=== PATIENT | female | born 1985 | race Caucasian/White ===

== ENCOUNTER 2020-10-13 03:20 | Inpatient (IN) ==
[2020-10-13] MEDS ORDERED: Buffered Lidocaine 1% SYRIN 1 ml INTRADERM ONE (04:01)
[2020-10-13] MEDS ORDERED: Lactated Ringers 1000 ml BAG 1,000 ML IV ONE ×2 (04:01→04:47)
[2020-10-13 04:07] LABS: ABS Basophils 0.1 10^3/ul (0-0.2); ABS Eosinophils 0.1 10^3/ul (0-0.6); ABS Lymphocytes 2.7 10^3/ul (1.0-4.8); ABS Monocytes 1.2 10^3/ul (0-0.8); ABS Neutrophils 14.1 10^3/ul (1.5-7.7); Eosinophil % 0.7 %; Hematocrit 43 % (35-47); Hemoglobin 14.6 g/dL (12.0-16.0); Mean Corpuscular HGB Conc 34 g/dL (31-36); Mean Corpuscular Hemoglobin 30 pg (27-31); Mean Corpuscular Volume 88 fL (80-97); Mean Platelet Volume 8.1 fL (7.4-10.4); Platelet Count 286 10^3/uL (150-450); Red Blood Count 4.85 10^6 /uL (3.70-4.87); Red Cell Distribution Width 14 % (10-15); White Blood Count 18.2 10^3/uL (3.5-10.8)
[2020-10-13] MEDS ORDERED: OBEPIDURAL 250 ML EPIDURAL ONE (04:09)
[2020-10-13] MEDS ORDERED: Bupivacaine 0.5% SDV PF 30ML VIAL ONE (04:26)
[2020-10-13] MEDS ORDERED: fentaNYL 100 mcg/2 ml 50 MCG/ML VIAL ONE (04:29)
[2020-10-13] MEDS: Lactated Ringers 1000 ml BAG 1,000 ML IV SCH ×2 (04:42→05:30)
[2020-10-13] MEDS ORDERED: Sodium Citrate/Citric Acid LIQ 15 ML UDC PO PRN (04:47)
[2020-10-13] MEDS ORDERED: Phenylephrine 40 mcg/mL 10mL (400mcg) SYRINGE IV PUSH PRN ×2 (04:47)
[2020-10-13] MEDS ORDERED: Lactated Ringers 1000 ml BAG 1,000 ML IV SCH ×2 (05:00→11:00)
[2020-10-13] MEDS ORDERED: OBEPIDURAL 250 ML EPIDURAL SCH (05:00)
[2020-10-13 06:30] LABS: Urine Appearance Cloudy; Urine Bilirubin Negative (Negative); Urine Blood 3+ (Negative); Urine Color Yellow; Urine Glucose Negative (Negative); Urine Ketones Negative (Negative); Urine Nitrite Negative (Negative); Urine Protein 1+(30 mg/dL) (Negative); Urine Specific Gravity 1.012 (1.002-1.030); Urine Urobilinogen Negative (Negative)
[2020-10-13 06:32] LABS: Urine Bacteria Absent (Absent); Urine Red Blood Cell 3+(>10/hpf) (Absent); Urine Squamous Epithelial Cell Present (Absent); Urine Transitional Epithelial Present (Absent); Urine White Blood Cell Trace(0-5/hpf) (Absent)
[2020-10-13 06:45] LABS: Urine Benzodiazepine Screen None Detected (None Detect); Urine Cannabinoids Screen Presumptive Positive (None Detect); Urine Opiates Screen None Detected (None Detect)
[2020-10-13] MEDS ORDERED: Oxytocin in LR 20 UNITS/1,000 ML BAG IVPB ONE (07:14)
[2020-10-13] MEDS ORDERED: Lidocaine 1% VIAL 10 MG/ML VIAL ONE (07:47)
[2020-10-13] MEDS ORDERED: Oxytocin in LR 20 UNITS/1,000 ML BAG IVPB SCH ×2 (10:00→11:00)
[2020-10-13] MEDS ORDERED: Witch Hazel PAD JAR TOPICAL PRN (10:13)
[2020-10-13] MEDS ORDERED: Glycerin ADULT 2.4 gm SUPP PR PRN (10:13)
[2020-10-13] MEDS ORDERED: Dibucaine 1% OINT 28.35 GM TUBE PR PRN (10:13)
[2020-10-13] MEDS ORDERED: Oxytocin 10 UNITS/ML 1 ML VIAL IM ONE (10:33)
[2020-10-13] MEDS: Venlafaxine XR 75 mg PO SCH (18:18)
[2020-10-14 06:56] LABS: ABS Basophils 0.1 10^3/ul (0-0.2); ABS Eosinophils 0.2 10^3/ul (0-0.6); ABS Neutrophils 12.4 10^3/ul (1.5-7.7); Hematocrit 33 % (35-47); Hemoglobin 11.1 g/dL (12.0-16.0); Lymphocyte % 17.9 %; Mean Corpuscular HGB Conc 34 g/dL (31-36); Mean Corpuscular Hemoglobin 30 pg (27-31); Mean Corpuscular Volume 90 fL (80-97); Mean Platelet Volume 7.9 fL (7.4-10.4); Platelet Count 208 10^3/uL (150-450); Red Blood Count 3.65 10^6 /uL (3.70-4.87); Red Cell Distribution Width 14 % (10-15); White Blood Count 16.7 10^3/uL (3.5-10.8)
[2020-10-14] MEDS: Venlafaxine XR 75 mg PO SCH (08:13)
[2020-10-15] MEDS: Venlafaxine XR 75 mg PO SCH (08:56)
[2020-10-15 11:07] VITALS: BP 121/62
== END 2020-10-15 14:42 | disposition home or self-care (01) | DRG 560 ==
LOC: MCHOBOUT 03:20 → MCHOB 03:56
PROVIDERS: ADMIT Midwife; ATTEND Midwife